=== PATIENT | female | born 1995 | race Hispanic/Latino ===

== ENCOUNTER 2021-11-29 01:25 | Inpatient (IN) | payer MEDICAID ==
[2021-11-29] MEDS ORDERED: LACTATED RINGERS 1,000 ML ONE (03:09)
[2021-11-29] MEDS ORDERED: SODIUM CHLORIDE 0.9% 1000 ML 1,000 ML IV ONE (03:23)
[2021-11-29 05:07] LABS: Basophils % (Auto) 0.2 % (0.0-1.8); Eosinophils % (Auto) 0.2 % (0.0-4.3); Hematocrit 33.3 % (30.3-42.9); Hemoglobin 10.7 gm/dl (10.1-14.3); Lymphocytes # (Auto) 0.4 K/mm3 (1.2-5.4); Lymphocytes % (Auto) 5.5 % (13.4-35.0); Mean Corpuscular HGB Conc 32 % (30-34); Mean Corpuscular Volume 85 fl (79-97); Monocytes # (Auto) 0.6 K/mm3 (0.0-0.8); Monocytes % (Auto) 7.4 % (0.0-7.3); Platelet Count 268 K/mm3 (140-440); Red Blood Count 3.93 M/mm3 (3.65-5.03); Red Cell Distribution Width 18.8 % (13.2-15.2)
[2021-11-29 05:18] LABS: Alanine Aminotransferase 21 units/L (7-56); Albumin 3.4 g/dL (3.9-5); Blood Urea Nitrogen 8 mg/dL (7-17); Calcium 9.1 mg/dL (8.4-10.2); Hemolysis Index 66
[2021-11-29 05:19] LABS: BUN/Creatinine Ratio 20
--- NOTE | 2021-11-29 05:38 | Ultrasound Report ---
ULTRASOUND RENAL INDICATION / CLINICAL INFORMATION: Back pain. COMPARISON: None available. FINDINGS: RIGHT KIDNEY: Length = 12.9 cm. - Echogenicity: Normal. - Parenchymal Thickness: Normal. - Hydronephrosis: None. - Cyst / Mass: None. - Stones: None seen. LEFT KIDNEY: Length = 13.1 cm. - Echogenicity: Normal. - Parenchymal Thickness: Normal. - Hydronephrosis: None. - Cyst / Mass: None. - Stones: None seen. URINARY BLADDER: No significant abnormality. FREE FLUID: None. ADDITIONAL FINDINGS: None. IMPRESSION: Unremarkable renal ultrasound. Signer Name: Raimundo Bullock MD Signed: 11/29/2021 5:34 AM Workstation Name: [id number]
--- NOTE | 2021-11-29 05:41 | Ultrasound Report ---
ULTRASOUND OBSTETRIC LIMITED INDICATION / CLINICAL INFORMATION: Contractions. - Clinical Gestational Age (GA) in weeks, days: 38, 3 TECHNIQUE: Transabdominal. COMPARISON: None available. FINDINGS: HEART RATE (beats per minute): 157 AMNIOTIC FLUID INDEX (cm) = 3.3 (normal = 7-24 cm) PRESENTATION: Cephalic. ADDITIONAL FINDINGS: Estimated age by ultrasound is 35 weeks 3 days. Estimated weight is 2578 g. IMPRESSION: 1. Viable intrauterine dated 35 weeks 3 days by ultrasound. 2. Abnormal amniotic fluid index of 3.3 cm. Signer Name: Raimundo Bullock MD Signed: 11/29/2021 5:36 AM Workstation Name: [id number]
[2021-11-29 05:56] LABS: Bilirubin,Urine NEG (Negative); Blood,Urine NEG (Negative); Color,Urine Amber (Yellow); Urobilinogen,Urine < 2.0 mg/dL (<2.0)
[2021-11-29 06:00] LABS: Mucus,Urine 3+ /HPF
[2021-11-29] MEDS ORDERED: ePHEDrine SULFATE 50 MG/1 ML INJ IV PRN (06:09)
[2021-11-29] MEDS ORDERED: MINERAL OIL 30 ML ORAL LIQD PO PRN (06:09)
[2021-11-29] MEDS ORDERED: OXYTOCIN DRIP 30 UNITS/500 ML BAG IV SCH ×2 (07:00→09:00)
--- NOTE | 2021-11-29 07:41 | History and Physical Report ---
History of Present Illness Date of examination: 11/29/21 Date of admission: 11/29/2021 Chief complaint: Back pain and lower abdominal pain History of present illness: The patient is a 26-year-old at 38-3/7 weeks gestation who presents to OB triage reporting lower abdominal pain and back pain. There is no vaginal bleeding. There is no leaking fluid. There are irregular contractions. There is good movement. In OB triage, the cervix was checked and the patient was deemed to not be in active labor. However, OB ultrasound limited revealed an amniotic fluid index of 3.3 cm. As such, this patient fulfills the contemporary criteria for oligohydramnios. In addition, there was maternal tachycardia. There was no fevers or chills. There was no leukocytosis. Urinalysis was reviewed. Lactic acid was not abnormally elevated. Therefore, the patient is admitted to labor and delivery for induction of labor secondary to oligohydramnios. Furthermore, further evaluation management of the maternal tachycardia will be performed. Past History Past Medical History: no pertinent history Past Surgical History: no surgical history Family/Genetic History: none Social history: no significant social history - Obstetrical History Expected Date of Delivery: 12/10/21 Actual Gestation: 38 Week(s) 3 Day(s) : 1 Para: 0 Medications and Allergies Allergies Allergy/AdvReac Type Severity Reaction Status Date / Time sulfur dioxide Allergy Severe Unknown Verified 11/29/21 02:07 pear Allergy Hives Verified 11/29/21 02:07 Active Meds: Active Medications Ephedrine Sulfate (Ephedrine Sulfate 50 Mg/1 Ml Inj) 10 mg IV Q2M PRN PRN Reason: Hypotension Lactated Ringer's (Lactated Ringers) 1,000 mls @ 125 mls/hr IV DIRECT KADEN Misoprostol (Misoprostol 25 Mcg Tab) 25 mcg PO Q4H PRN PRN Reason: Labor Induction Review of Systems All systems: negative - Vital Signs Vital signs: Vital Signs Pulse Pulse Ox 126 H 96 11/29/21 02:03 11/29/21 02:03 Temp Pulse Resp BP Pulse Ox 100 F H 117 H 20 101/50 96 11/29/21 02:30 11/29/21 05:30 11/29/21 02:30 11/29/21 05:30 11/29/21 02:59 - Physical Exam Breasts: Positive: normal Cardiovascular: Regular rate Lungs: Positive: Normal air movement Abdomen: Positive: normal appearance, normal bowel sounds Genitourinary (Female): Positive: normal external genitalia, normal perenium Vulva: both: normal Vagina: Positive: normal moisture Uterus: Positive: enlarged Adnexa: both: normal Anus/Rectum: Positive: normal perianal skin Extremities: Positive: normal Deep Tendon Reflex Grade: Normal +2 - Obstetrical FHR: category 1 Uterine Contraction Monitor Mode: Palpation Cervical Dilatation: 0 Cervical Effacement Percentage: 50 station: -3 Uterine Contraction Pattern: Irregular Results Result Diagrams: 11/29/21 03:22 11/29/21 Unknown Abnormal lab results 11/29/21 11/29/21 Range/Units 03:22 Unknown MCH 27 L (28-32) pg RDW 18.8 H (13.2-15.2) % Lymph % (Auto) 5.5 L (13.4-35.0) % [place] % (Auto) 7.4 H (0.0-7.3) % Lymph # (Auto) 0.4 L (1.2-5.4) K/mm3 Seg Neutrophils % 86.7 H (40.0-70.0) % Sodium 135 L (137-145) mmol/L Carbon Dioxide 20 L (22-30) mmol/L Creatinine 0.4 L (0.6-1.2) mg/dL Glucose 101 H (65-100) mg/dL Total Protein 6.1 L (6.3-8.2) g/dL Albumin 3.4 L (3.9-5) g/dL All other labs normal. ABG was ordered. EKG is ordered. Ultrasound: report reviewed (OB Ultrasound Limited= SLIUP. Vertex. EFW= 2578 g (4th %-ile). AGGIE= 3.3 cm.), image reviewed Assessment and Plan - Patient Problems (1) 38 weeks gestation of Current Visit: Yes Status: Acute Plan to address problem: care is up-to-date at [facility]. GBS status is unknown at this time. Currently, there are no risk factors for GBS per 2010 CDC MMWR guidelines. As such, no intrapartum GBS prophylaxis at this time. However, if this patient does develop risk factors for GBS or it is discovered that the patient's GBS culture was positive, then prescribe intravenous penicillin for intrapartum GBS prophylaxis. (2) Oligohydramnios in rosario in third trimester Current Visit: Yes Status: Acute Plan to address problem: The amniotic fluid next is 3.3 cm. As such, this patient fulfills the contemporary criteria for oligohydramnios. Etiology for this is unknown. ROM plus test is ordered. And lieu of the oligohydramnios, induction of labor is recommended to decrease the risk of stillbirth. (3) Maternal care for tachycardia during Current Visit: Yes Status: Acute Plan to address problem: The etiology for his maternal tachycardia is unknown at this time. There is no leukocytosis. This patient's maximum temperature was 100 F. Early onset sepsis is not suspected. ABG is ordered to evaluate for an A-a gradient. If there is an A-a gradient, then pulmonary embolism will be suspected must be ruled out. EKG is also ordered. (4) Encounter for induction of labor Current Visit: Yes Status: Acute Plan to address problem: Admit to labor and delivery. Ripen cervix with Cytotec. When cervix is dilated further, consider the addition of a Cook's catheter for additional cervical dilation.
[2021-11-29] MEDS ORDERED: fentaNYL 100 MCG/2 ML INJ IV PRN (08:30)
[2021-11-29] MEDS ORDERED: METHYLERGONOVINE MALEATE 0.2 MG/ML VIAL IM PRN (08:30)
[2021-11-29] MEDS ORDERED: ACETAMINOPHEN 325 MG TAB PO PRN (08:30)
[2021-11-29] MEDS ORDERED: CARBOPROST TROMETHAMINE 250 MCG/1 ML INJ IM PRN (08:30)
--- NOTE | 2021-11-29 17:59 | Ultrasound Report ---
ULTRASOUND OBSTETRIC LIMITED INDICATION / CLINICAL INFORMATION: AGGIE. Clinical Gestational Age (GA) in weeks, days: 38, 3 TECHNIQUE: Transabdominal. COMPARISON: 11/29/2021 FINDINGS: HEART RATE (beats per minute): 152 AMNIOTIC FLUID INDEX (cm) = 5.9 (normal = 7-24 cm) PRESENTATION: Cephalic. ADDITIONAL FINDINGS: None. IMPRESSION: 1. Mild oligohydramnios Signer Name: Jann Hoffmann DO Signed: 11/29/2021 5:55 PM Workstation Name: [id number]
--- NOTE | 2021-11-29 18:27 | Event Note ---
Date: 11/29/21 Discussed plan of care and route of delivery with the patient and her mother. They have agreed to proceed with induction of labor. The mother has to leave and will return a little later and has requested that we not start the induction until then. The patient has also tested positive for Covid.
[2021-11-30] MEDS: miSOPROStol 25 MCG TAB PO PRN ×4 (01:31→16:55)
[2021-11-30] MEDS: LACTATED RINGERS 1,000 ML IV SCH ×2 (08:16→17:07)
[2021-11-30] MEDS: BUTORPHANOL 2 MG/1 ML INJ IV PRN ×3 (15:14→22:46)
--- NOTE | 2021-11-30 16:34 | Progress Note ---
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 no lesions noted genital roger noted on exam CAT 1 tracing while on monitor pain with contractions P: continuous and contraction monitoring Continue induction process per unit protocol Continue induction with SL cytotec, then start Pitocin start ABX with active labor for unknown GBS Administer Diflucan PO for yeast infection Administer Pain medication for comfort Subjective - Subjective Date of service: 11/30/21 ([id number]) Principal diagnosis: IOL for Oligohydramnios Patient reports: other (pain with contractions) Objective - Vital Signs Vital Signs: Vital Signs - 12hr 11/30/21 11/30/21 11/30/21 04:22 04:23 04:27 Temperature Pulse Rate 101 H 103 H 113 H Respiratory Rate Blood Pressure Blood Pressure [Left] O2 Sat by Pulse 93 93 92 Oximetry 11/30/21 11/30/21 11/30/21 04:28 04:32 04:37 Temperature Pulse Rate 100 H 116 H 118 H Respiratory Rate Blood Pressure Blood Pressure [Left] O2 Sat by Pulse 93 97 96 Oximetry 11/30/21 11/30/21 11/30/21 04:42 04:48 04:50 Temperature Pulse Rate 118 H 101 H 114 H Respiratory Rate Blood Pressure Blood Pressure [Left] O2 Sat by Pulse 96 98 94 Oximetry 11/30/21 11/30/21 11/30/21 04:53 04:57 04:58 Temperature Pulse Rate 116 H 114 H 117 H Respiratory Rate Blood Pressure Blood Pressure [Left] O2 Sat by Pulse 96 93 95 Oximetry 11/30/21 11/30/21 11/30/21 05:03 05:05 05:08 Temperature Pulse Rate 116 H 114 H 116 H Respiratory Rate Blood Pressure Blood Pressure [Left] O2 Sat by Pulse 97 94 95 Oximetry 11/30/21 11/30/21 11/30/21 05:11 05:13 05:18 Temperature Pulse Rate 111 H 115 H 106 H Respiratory Rate Blood Pressure Blood Pressure [Left] O2 Sat by Pulse 94 97 97 Oximetry 11/30/21 11/30/21 11/30/21 05:23 05:28 05:31 Temperature Pulse Rate 103 H 107 H 104 H Respiratory Rate Blood Pressure Blood Pressure [Left] O2 Sat by Pulse 95 95 94 Oximetry 11/30/21 11/30/21 11/30/21 05:33 05:38 05:43 Temperature Pulse Rate 100 H 111 H 110 H Respiratory Rate Blood Pressure Blood Pressure [Left] O2 Sat by Pulse 96 95 95 Oximetry 11/30/21 11/30/21 11/30/21 05:45 05:48 05:52 Temperature Pulse Rate 116 H 111 H 108 H Respiratory Rate Blood Pressure Blood Pressure [Left] O2 Sat by Pulse 94 95 93 Oximetry 11/30/21 11/30/21 11/30/21 05:53 05:58 06:03 Temperature Pulse Rate 103 H 103 H 107 H Respiratory Rate Blood Pressure Blood Pressure [Left] O2 Sat by Pulse 95 94 96 Oximetry 11/30/21 11/30/21 11/30/21 06:06 06:09 06:14 Temperature Pulse Rate 106 H 107 H 105 H Respiratory Rate Blood Pressure Blood Pressure [Left] O2 Sat by Pulse 94 97 95 Oximetry 11/30/21 11/30/21 11/30/21 06:15 06:19 06:24 Temperature Pulse Rate 104 H 98 H 107 H Respiratory Rate Blood Pressure Blood Pressure [Left] O2 Sat by Pulse 94 96 95 Oximetry 11/30/21 11/30/21 11/30/21 06:26 06:29 06:31 Temperature Pulse Rate 105 H 105 H 107 H Respiratory Rate Blood Pressure Blood Pressure [Left] O2 Sat by Pulse 94 96 94 Oximetry 11/30/21 11/30/21 11/30/21 06:34 06:37 06:39 Temperature Pulse Rate 101 H 101 H 103 H Respiratory Rate Blood Pressure Blood Pressure [Left] O2 Sat by Pulse 94 94 94 Oximetry 11/30/21 11/30/21 11/30/21 06:42 06:44 06:47 Temperature Pulse Rate 113 H 108 H 103 H Respiratory Rate Blood Pressure Blood Pressure [Left] O2 Sat by Pulse 94 94 94 Oximetry 11/30/21 11/30/21 11/30/21 06:49 06:54 06:59 Temperature Pulse Rate 102 H 100 H 101 H Respiratory Rate Blood Pressure Blood Pressure [Left] O2 Sat by Pulse 94 94 97 Oximetry 11/30/21 11/30/21 11/30/21 07:01 07:04 07:07 Temperature Pulse Rate 100 H 106 H 97 H Respiratory Rate Blood Pressure Blood Pressure [Left] O2 Sat by Pulse 94 94 93 Oximetry 11/30/21 11/30/21 11/30/21 07:09 07:14 07:19 Temperature Pulse Rate 95 H 92 H 100 H Respiratory Rate Blood Pressure Blood Pressure [Left] O2 Sat by Pulse 92 91 91 Oximetry 11/30/21 11/30/21 11/30/21 07:24 07:29 07:34 Temperature Pulse Rate 98 H 97 H 99 H Respiratory Rate Blood Pressure Blood Pressure [Left] O2 Sat by Pulse 91 90 90 Oximetry 11/30/21 11/30/21 11/30/21 07:39 07:44 07:49 Temperature Pulse Rate 96 H 104 H 94 H Respiratory Rate Blood Pressure Blood Pressure [Left] O2 Sat by Pulse 90 90 92 Oximetry 11/30/21 11/30/21 11/30/21 07:54 07:59 08:00 Temperature Pulse Rate 92 H 97 H 106 H Respiratory Rate Blood Pressure 102/56 Blood Pressure [Left] O2 Sat by Pulse 92 94 Oximetry 11/30/21 11/30/21 11/30/21 08:03 08:04 08:05 Temperature 97.9 F Pulse Rate 99 H 104 H 113 H Respiratory 18 Rate Blood Pressure Blood Pressure 102/56 [Left] O2 Sat by Pulse 95 95 94 Oximetry 11/30/21 11/30/21 11/30/21 08:09 08:11 08:14 Temperature Pulse Rate 98 H 66 99 H Respiratory Rate Blood Pressure Blood Pressure [Left] O2 Sat by Pulse 94 93 95 Oximetry 11/30/21 11/30/21 11/30/21 08:17 08:19 08:23 Temperature Pulse Rate 98 H 100 H 99 H Respiratory Rate Blood Pressure Blood Pressure [Left] O2 Sat by Pulse 94 95 94 Oximetry 11/30/21 11/30/21 11/30/21 08:24 08:29 08:33 Temperature Pulse Rate 98 H 89 87 Respiratory Rate Blood Pressure Blood Pressure [Left] O2 Sat by Pulse 94 93 94 Oximetry 11/30/21 11/30/21 11/30/21 08:34 08:38 08:39 Temperature Pulse Rate 86 105 H 100 H Respiratory Rate Blood Pressure Blood Pressure [Left] O2 Sat by Pulse 92 93 93 Oximetry 0711/30/21 11/30/21 08:45 08:50 08:55 Temperature Pulse Rate 115 H 98 H 114 H Respiratory Rate Blood Pressure Blood Pressure [Left] O2 Sat by Pulse 96 95 96 Oximetry 11/30/21 11/30/21 11/30/21 09:00 09:03 09:05 Temperature Pulse Rate 78 102 H 99 H Respiratory Rate Blood Pressure Blood Pressure [Left] O2 Sat by Pulse 96 94 96 Oximetry 11/30/21 11/30/21 11/30/21 09:10 09:15 09:17 Temperature Pulse Rate 77 99 H 98 H Respiratory Rate Blood Pressure Blood Pressure [Left] O2 Sat by Pulse 91 91 91 Oximetry 11/30/21 11/30/21 11/30/21 09:20 09:23 09:25 Temperature Pulse Rate 111 H 94 H 106 H Respiratory Rate Blood Pressure Blood Pressure [Left] O2 Sat by Pulse 84 93 88 Oximetry 11/30/21 11/30/21 11/30/21 09:30 09:32 09:35 Temperature Pulse Rate 104 H 112 H 104 H Respiratory Rate Blood Pressure Blood Pressure [Left] O2 Sat by Pulse 87 93 94 Oximetry 11/30/21 11/30/21 11/30/21 09:40 09:42 09:45 Temperature Pulse Rate 98 H 103 H 90 Respiratory Rate Blood Pressure Blood Pressure [Left] O2 Sat by Pulse 93 94 93 Oximetry 11/30/21 11/30/21 11/30/21 09:49 09:50 09:55 Temperature Pulse Rate 94 H 97 H 102 H Respiratory Rate Blood Pressure Blood Pressure [Left] O2 Sat by Pulse 93 94 94 Oximetry 11/30/21 11/30/21 11/30/21 09:56 10:00 10:02 Temperature Pulse Rate 102 H 98 H 99 H Respiratory Rate Blood Pressure Blood Pressure [Left] O2 Sat by Pulse 94 92 94 Oximetry 11/30/21 11/30/21 11/30/21 10:05 10:10 10:15 Temperature Pulse Rate 99 H 100 H 102 H Respiratory Rate Blood Pressure Blood Pressure [Left] O2 Sat by Pulse 94 93 93 Oximetry 11/30/21 11/30/21 11/30/21 10:19 10:20 10:25 Temperature Pulse Rate 97 H 102 H 96 H Respiratory Rate Blood Pressure Blood Pressure [Left] O2 Sat by Pulse 94 93 94 Oximetry 11/30/21 11/30/21 11/30/21 10:30 10:35 10:37 Temperature Pulse Rate 77 94 H 78 Respiratory Rate Blood Pressure Blood Pressure [Left] O2 Sat by Pulse 90 78 L 93 Oximetry 11/30/21 11/30/21 11/30/21 10:40 10:45 10:50 Temperature Pulse Rate 78 99 H 94 H Respiratory Rate Blood Pressure Blood Pressure [Left] O2 Sat by Pulse 78 L 91 67 L Oximetry 11/30/21 11/30/21 11/30/21 10:51 10:55 10:56 Temperature Pulse Rate 105 H 91 H Respiratory Rate Blood Pressure Blood Pressure [Left] O2 Sat by Pulse 83 L 84 92 Oximetry 11/30/21 11/30/21 11/30/21 11:00 11:05 11:10 Temperature Pulse Rate 107 H 99 H 100 H Respiratory Rate Blood Pressure Blood Pressure [Left] O2 Sat by Pulse 94 95 95 Oximetry 11/30/21 11/30/21 11/30/21 11:15 11:16 12:25 Temperature Pulse Rate 105 H 108 H 107 H Respiratory Rate Blood Pressure Blood Pressure [Left] O2 Sat by Pulse 96 93 95 Oximetry 11/30/21 11/30/21 11/30/21 12:30 12:34 12:35 Temperature Pulse Rate 106 H 98 H 98 H Respiratory Rate Blood Pressure Blood Pressure [Left] O2 Sat by Pulse 96 94 95 Oximetry 11/30/21 11/30/21 11/30/21 12:40 12:41 12:45 Temperature Pulse Rate 102 H 97 H 104 H Respiratory Rate Blood Pressure Blood Pressure [Left] O2 Sat by Pulse 95 94 95 Oximetry 11/30/21 11/30/21 11/30/21 12:47 12:50 12:55 Temperature Pulse Rate 95 H 99 H 97 H Respiratory Rate Blood Pressure Blood Pressure [Left] O2 Sat by Pulse 94 94 94 Oximetry 11/30/21 11/30/21 11/30/21 12:58 13:00 13:44 Temperature Pulse Rate 107 H 102 H 98 H Respiratory Rate Blood Pressure Blood Pressure [Left] O2 Sat by Pulse 93 97 95 Oximetry 11/30/21 11/30/21 13:47 13:49 Temperature Pulse Rate 104 H 100 H Respiratory Rate Blood Pressure Blood Pressure [Left] O2 Sat by Pulse 94 96 Oximetry - Exam Breasts: deferred Vulva: both: normal (erythema, yeast noted), ulceration (none notede) Uterus: Present: fundal height above umbilicus FHR: category 1 (@1520) Uterine Contraction Monitor Mode: External Cervical Dilatation: 1.5 Cervical Effacement Percentage: 70 (posterior) station: -3 Uterine Contraction Frequency (min): 2-6 Uterine Contraction Pattern: Regular Uterine Contraction Intensity: Moderate Extremities: normal - Labs Labs: Abnormal Labs 11/29/21 11/29/21 11/29/21 03:22 08:40 13:06 MCH 27 L RDW 18.8 H Lymph % (Auto) 5.[address] [place] % (Auto) 7.4 H Lymph # (Auto) 0.4 L Seg Neutrophils % 86.7 H Sodium Carbon Dioxide Creatinine Glucose Total Protein Albumin Syphilis IgG/IgM Ab Reactive A SARS-CoV-2 (PCR) Positive A 11/29/21 Unknown MCH RDW Lymph % (Auto) [place] % (Auto) Lymph # (Auto) Seg Neutrophils % Sodium 135 L Carbon Dioxide 20 L Creatinine 0.4 L Glucose 101 H Total Protein 6.1 L Albumin 3.4 L Syphilis IgG/IgM Ab SARS-CoV-2 (PCR) Laboratory Results - last 24 hr 11/29/21 08:40 RPR Titer 1:1
[2021-11-30] MEDS ORDERED: FLUCONAZOLE 100 MG TAB PO ONE (16:37)
--- NOTE | 2021-11-30 18:30 | Event Note ---
Date: 11/30/21 Patient crying out stating she is in pain and feels anxious. VE 1.5-2cm/70/-3. Comfort measures given, reassurance and pain meds. EFM cat 1 tracin, contraction 2-3 min.
[2021-11-30] MEDS ORDERED: AMPICILLIN/NS 2 GM/100 ML 2 GM/100 ML BAG IV ONE (20:55)
[2021-11-30] MEDS: OXYTOCIN DRIP 30 UNITS/500 ML BAG IV SCH (21:10)
[2021-12-01] MEDS: AMPICILLIN/NS 1 GM/50 ML 1 GM/50 ML BAG IV SCH ×3 (02:30→20:14)
[2021-12-01] MEDS: BUTORPHANOL 2 MG/1 ML INJ IV PRN (03:02)
--- NOTE | 2021-12-01 10:12 | Progress Note ---
Assessment and Plan A: IUP@ 38.3 wks Aspergers syndrome HSV II, Oligo, M.O H/O syphilis GBS unknown CAT FHT P: Continue monitoring Start Pitocin Epidural as needed GBS protocal Anticipate Subjective - Subjective Date of service: 12/01/21 Principal diagnosis: IOL for Oligohydramnios Patient reports: movement normal, contractions, other (pain with contractions) Objective - Vital Signs Vital Signs: Vital Signs - 12hr 11/30/21 11/30/21 11/30/21 21:59 22:15 22:41 Temperature Pulse Rate 102 H 100 H 112 H Respiratory Rate Blood Pressure 104/59 111/58 Blood Pressure [Left] O2 Sat by Pulse 94 Oximetry 11/30/21 11/30/21 11/30/21 22:45 22:46 22:49 Temperature Pulse Rate 111 H 111 H 109 H Respiratory Rate Blood Pressure 94/51 Blood Pressure [Left] O2 Sat by Pulse 94 94 Oximetry 11/30/21 11/30/21 11/30/21 22:51 22:56 23:00 Temperature Pulse Rate 98 H 91 H 95 H Respiratory Rate Blood Pressure 92/52 Blood Pressure [Left] O2 Sat by Pulse 93 90 89 Oximetry 11/30/21 11/30/21 11/30/21 23:01 23:06 23:07 Temperature Pulse Rate 89 88 84 Respiratory Rate Blood Pressure Blood Pressure [Left] O2 Sat by Pulse 90 95 93 Oximetry 11/30/21 11/30/21 11/30/21 23:11 23:14 23:16 Temperature Pulse Rate 100 H 99 H 92 H Respiratory Rate Blood Pressure 98/60 Blood Pressure [Left] O2 Sat by Pulse 93 93 Oximetry 11/30/21 11/30/21 11/30/21 23:21 23:24 23:26 Temperature Pulse Rate 94 H 103 H 96 H Respiratory Rate Blood Pressure Blood Pressure [Left] O2 Sat by Pulse 93 94 92 Oximetry 11/30/21 11/30/21 11/30/21 23:30 23:31 23:36 Temperature Pulse Rate 86 96 H Respiratory Rate Blood Pressure 98/54 Blood Pressure [Left] O2 Sat by Pulse 86 92 93 Oximetry 11/30/21 11/30/21 11/30/21 23:37 23:41 23:46 Temperature Pulse Rate 86 92 H 93 H Respiratory Rate Blood Pressure 103/58 Blood Pressure [Left] O2 Sat by Pulse 94 93 93 Oximetry 11/30/21 11/30/21 11/30/21 23:48 23:51 23:55 Temperature Pulse Rate 85 98 H 91 H Respiratory Rate Blood Pressure Blood Pressure [Left] O2 Sat by Pulse 94 93 94 Oximetry 11/30/21 11/30/21 12/01/21 23:56 23:59 00:01 Temperature Pulse Rate 88 93 H 90 Respiratory Rate Blood Pressure 100/58 Blood Pressure [Left] O2 Sat by Pulse 95 94 Oximetry 12/01/21 12/01/21 12/01/21 00:06 00:08 00:11 Temperature Pulse Rate 100 H 92 H 91 H Respiratory Rate Blood Pressure Blood Pressure [Left] O2 Sat by Pulse 96 94 93 Oximetry 12/01/21 12/01/21 12/01/21 00:13 00:14 00:16 Temperature 98.1 F Pulse Rate 98 H 88 88 Respiratory 18 Rate Blood Pressure 105/60 Blood Pressure 105/60 [Left] O2 Sat by Pulse 94 98 93 Oximetry 12/01/21 12/01/21 12/01/21 00:21 00:22 00:26 Temperature Pulse Rate 96 H 92 H 101 H Respiratory Rate Blood Pressure Blood Pressure [Left] O2 Sat by Pulse 93 94 95 Oximetry 12/01/21 12/01/21 12/01/21 00:27 00:30 00:31 Temperature Pulse Rate 87 88 90 Respiratory Rate Blood Pressure 97/55 Blood Pressure [Left] O2 Sat by Pulse 94 93 Oximetry 12/01/21 12/01/21 12/01/21 00:36 00:41 00:45 Temperature Pulse Rate 92 H 91 H 90 Respiratory Rate Blood Pressure 100/53 Blood Pressure [Left] O2 Sat by Pulse 93 92 76 L Oximetry 12/01/21 12/01/21 12/01/21 00:46 00:51 00:56 Temperature Pulse Rate 95 H 94 H 95 H Respiratory Rate Blood Pressure Blood Pressure [Left] O2 Sat by Pulse 92 92 92 Oximetry 12/01/21 12/01/21 12/01/21 01:00 01:01 01:06 Temperature Pulse Rate 96 H 91 H 95 H Respiratory Rate Blood Pressure 104/58 Blood Pressure [Left] O2 Sat by Pulse 81 L 92 93 Oximetry 12/01/21 12/01/21 12/01/21 01:11 01:14 01:16 Temperature Pulse Rate 95 H 93 H 90 Respiratory Rate Blood Pressure 105/53 Blood Pressure [Left] O2 Sat by Pulse 94 87 94 Oximetry 12/01/21 12/01/21 12/01/21 01:21 01:22 01:26 Temperature Pulse Rate 91 H 89 92 H Respiratory Rate Blood Pressure Blood Pressure [Left] O2 Sat by Pulse 94 94 93 Oximetry 12/01/21 12/01/21 12/01/21 01:29 01:31 01:35 Temperature Pulse Rate 96 H 92 H 88 Respiratory Rate Blood Pressure 102/59 Blood Pressure [Left] O2 Sat by Pulse 90 92 94 Oximetry 12/01/21 12/01/21 12/01/21 01:36 01:41 01:45 Temperature Pulse Rate 92 H 97 H 96 H Respiratory Rate Blood Pressure 108/61 Blood Pressure [Left] O2 Sat by Pulse 93 94 Oximetry 12/01/21 12/01/21 12/01/21 01:46 01:51 01:56 Temperature Pulse Rate 73 88 102 H Respiratory Rate Blood Pressure Blood Pressure [Left] O2 Sat by Pulse 97 95 96 Oximetry 12/01/21 12/01/21 12/01/21 01:58 02:01 02:02 Temperature Pulse Rate 114 H 84 93 H Respiratory Rate Blood Pressure 104/57 Blood Pressure [Left] O2 Sat by Pulse 93 96 Oximetry 12/01/21 12/01/21 12/01/21 02:04 02:06 02:10 Temperature Pulse Rate 104 H 90 97 H Respiratory Rate Blood Pressure Blood Pressure [Left] O2 Sat by Pulse 94 93 94 Oximetry 12/01/21 12/01/21 12/01/21 02:11 02:15 02:16 Temperature Pulse Rate 99 H 92 H 89 Respiratory Rate Blood Pressure 120/66 Blood Pressure [Left] O2 Sat by Pulse 95 80 L 92 Oximetry 12/01/21 12/01/21 12/01/21 02:21 02:26 02:29 Temperature Pulse Rate 91 H 91 H Respiratory Rate Blood Pressure Blood Pressure [Left] O2 Sat by Pulse 91 91 61 L Oximetry 12/01/21 12/01/21 12/01/21 02:30 02:31 02:36 Temperature Pulse Rate 88 86 91 H Respiratory Rate Blood Pressure 120/70 Blood Pressure [Left] O2 Sat by Pulse 92 91 Oximetry 12/01/21 12/01/21 12/01/21 02:38 02:56 02:57 Temperature Pulse Rate 93 H 87 82 Respiratory Rate Blood Pressure Blood Pressure [Left] O2 Sat by Pulse 94 97 93 Oximetry 12/01/21 12/01/21 12/01/21 02:59 03:01 03:06 Temperature Pulse Rate 88 86 88 Respiratory Rate Blood Pressure 109/63 Blood Pressure [Left] O2 Sat by Pulse 95 92 Oximetry 12/01/21 12/01/21 12/01/21 03:07 03:11 03:14 Temperature Pulse Rate 96 H 94 H 102 H Respiratory Rate Blood Pressure Blood Pressure [Left] O2 Sat by Pulse 94 94 93 Oximetry 12/01/21 12/01/21 12/01/21 03:15 03:16 03:21 Temperature Pulse Rate 86 95 H 89 Respiratory Rate Blood Pressure 104/61 Blood Pressure [Left] O2 Sat by Pulse 94 92 Oximetry 12/01/21 12/01/21 12/01/21 03:26 03:29 03:31 Temperature Pulse Rate 91 H 90 82 Respiratory Rate Blood Pressure 99/58 Blood Pressure [Left] O2 Sat by Pulse 92 92 Oximetry 12/01/21 12/01/21 12/01/21 03:36 03:38 03:41 Temperature Pulse Rate 87 84 95 H Respiratory Rate Blood Pressure Blood Pressure [Left] O2 Sat by Pulse 94 94 95 Oximetry 12/01/21 12/01/21 12/01/21 03:44 03:45 03:46 Temperature Pulse Rate 84 94 H 95 H Respiratory Rate Blood Pressure 102/59 Blood Pressure [Left] O2 Sat by Pulse 93 94 Oximetry 12/01/21 12/01/21 12/01/21 03:51 03:52 03:56 Temperature Pulse Rate 85 87 87 Respiratory Rate Blood Pressure Blood Pressure [Left] O2 Sat by Pulse 95 94 97 Oximetry 12/01/21 12/01/21 12/01/21 03:59 04:01 04:06 Temperature Pulse Rate 81 89 92 H Respiratory Rate Blood Pressure 107/59 Blood Pressure [Left] O2 Sat by Pulse 94 95 95 Oximetry 12/01/21 12/01/21 12/01/21 04:11 04:12 04:14 Temperature Pulse Rate 94 H 92 H 88 Respiratory Rate Blood Pressure 101/58 Blood Pressure [Left] O2 Sat by Pulse 95 94 Oximetry 12/01/21 12/01/21 12/01/21 04:16 04:21 04:26 Temperature Pulse Rate 93 H 90 90 Respiratory Rate Blood Pressure Blood Pressure [Left] O2 Sat by Pulse 96 95 94 Oximetry 12/01/21 12/01/21 12/01/21 04:27 04:29 04:31 Temperature Pulse Rate 91 H 89 91 H Respiratory Rate Blood Pressure 107/58 Blood Pressure [Left] O2 Sat by Pulse 94 95 Oximetry 12/01/21 12/01/21 12/01/21 04:35 04:36 04:47 Temperature Pulse Rate 88 85 89 Respiratory Rate Blood Pressure 107/59 Blood Pressure [Left] O2 Sat by Pulse 94 94 88 Oximetry 12/01/21 12/01/21 12/01/21 05:02 05:07 05:08 Temperature Pulse Rate 92 H 95 H 87 Respiratory Rate Blood Pressure 100/67 Blood Pressure [Left] O2 Sat by Pulse 92 96 94 Oximetry 12/01/21 12/01/21 12/01/21 05:12 05:14 05:15 Temperature Pulse Rate 87 88 88 Respiratory Rate Blood Pressure 112/64 Blood Pressure [Left] O2 Sat by Pulse 96 94 Oximetry 12/01/21 12/01/21 12/01/21 05:17 05:20 05:22 Temperature Pulse Rate 89 89 92 H Respiratory Rate Blood Pressure Blood Pressure [Left] O2 Sat by Pulse 95 94 95 Oximetry 12/01/21 12/01/21 12/01/21 05:27 05:29 05:30 Temperature 98.0 F Pulse Rate 92 H 87 87 Respiratory 18 Rate Blood Pressure 101/59 Blood Pressure 101/59 [Left] O2 Sat by Pulse 94 92 95 Oximetry 12/01/21 12/01/21 12/01/21 05:32 05:37 05:42 Temperature Pulse Rate 76 91 H 107 H Respiratory Rate Blood Pressure Blood Pressure [Left] O2 Sat by Pulse 95 95 96 Oximetry 12/01/21 12/01/21 12/01/21 05:45 05:47 05:52 Temperature Pulse Rate 89 88 95 H Respiratory Rate Blood Pressure 99/55 Blood Pressure [Left] O2 Sat by Pulse 93 91 Oximetry 12/01/21 12/01/21 12/01/21 05:57 05:59 06:02 Temperature Pulse Rate 93 H 93 H 89 Respiratory Rate Blood Pressure 102/59 Blood Pressure [Left] O2 Sat by Pulse 92 93 Oximetry 12/01/21 12/01/21 12/01/21 06:07 06:12 06:14 Temperature Pulse Rate 95 H 93 H 107 H Respiratory Rate Blood Pressure 117/63 Blood Pressure [Left] O2 Sat by Pulse 93 90 Oximetry 12/01/21 12/01/21 12/01/21 06:17 06:22 06:27 Temperature Pulse Rate 81 86 93 H Respiratory Rate Blood Pressure Blood Pressure [Left] O2 Sat by Pulse 93 92 91 Oximetry 12/01/21 12/01/21 12/01/21 06:29 06:30 06:32 Temperature Pulse Rate 94 H 93 H 96 H Respiratory Rate Blood Pressure 110/59 Blood Pressure [Left] O2 Sat by Pulse 88 92 Oximetry 12/01/21 12/01/21 12/01/21 06:37 06:41 06:42 Temperature Pulse Rate 108 H 103 H 104 H Respiratory Rate Blood Pressure Blood Pressure [Left] O2 Sat by Pulse 95 94 93 Oximetry 12/01/21 12/01/21 12/01/21 07:22 07:27 07:29 Temperature Pulse Rate 98 H 98 H 89 Respiratory Rate Blood Pressure 107/65 Blood Pressure [Left] O2 Sat by Pulse 97 98 Oximetry 12/01/21 12/01/21 12/01/21 07:32 07:37 07:42 Temperature Pulse Rate 93 H 92 H 92 H Respiratory Rate Blood Pressure Blood Pressure [Left] O2 Sat by Pulse 99 98 98 Oximetry 12/01/21 12/01/21 12/01/21 07:44 07:47 07:52 Temperature Pulse Rate 85 89 96 H Respiratory Rate Blood Pressure 109/67 Blood Pressure [Left] O2 Sat by Pulse 97 98 Oximetry 12/01/21 12/01/21 12/01/21 07:57 07:59 08:02 Temperature Pulse Rate 93 H 96 H 87 Respiratory Rate Blood Pressure 110/62 Blood Pressure [Left] O2 Sat by Pulse 98 99 Oximetry 12/01/21 12/01/21 12/01/21 08:07 08:12 08:14 Temperature Pulse Rate 95 H 103 H 91 H Respiratory Rate Blood Pressure 107/59 Blood Pressure [Left] O2 Sat by Pulse 98 97 Oximetry 12/01/21 12/01/21 12/01/21 08:17 08:22 08:27 Temperature Pulse Rate 97 H 93 H 89 Respiratory Rate Blood Pressure Blood Pressure [Left] O2 Sat by Pulse 97 96 95 Oximetry 12/01/21 12/01/21 12/01/21 08:29 08:32 08:37 Temperature Pulse Rate 88 92 H 99 H Respiratory Rate Blood Pressure 108/59 Blood Pressure [Left] O2 Sat by Pulse 95 96 Oximetry 12/01/21 12/01/21 12/01/21 08:42 08:44 08:47 Temperature Pulse Rate 88 83 90 Respiratory Rate Blood Pressure 100/55 Blood Pressure [Left] O2 Sat by Pulse 95 96 Oximetry 12/01/21 12/01/21 12/01/21 08:49 08:52 08:57 Temperature Pulse Rate 74 88 99 H Respiratory Rate Blood Pressure Blood Pressure [Left] O2 Sat by Pulse 94 96 97 Oximetry 12/01/21 12/01/21 12/01/21 08:59 09:02 09:07 Temperature Pulse Rate 100 H 95 H 92 H Respiratory Rate Blood Pressure 114/72 Blood Pressure [Left] O2 Sat by Pulse 95 96 Oximetry 12/01/21 12/01/21 12/01/21 09:12 09:16 09:17 Temperature Pulse Rate 83 86 85 Respiratory Rate Blood Pressure 125/64 Blood Pressure [Left] O2 Sat by Pulse 97 94 97 Oximetry 12/01/21 12/01/21 12/01/21 09:22 09:27 09:30 Temperature Pulse Rate 84 88 89 Respiratory Rate Blood Pressure 118/69 Blood Pressure [Left] O2 Sat by Pulse 95 97 Oximetry 12/01/21 12/01/21 12/01/21 09:32 09:37 09:42 Temperature Pulse Rate 84 94 H 90 Respiratory Rate Blood Pressure Blood Pressure [Left] O2 Sat by Pulse 95 97 96 Oximetry 12/01/21 12/01/21 09:45 09:47 Temperature Pulse Rate 100 H 88 Respiratory Rate Blood Pressure 131/72 Blood Pressure [Left] O2 Sat by Pulse 97 Oximetry - Exam Breasts: deferred Abdomen: Present: normal appearance, soft, normal bowel sounds Vulva: both: normal Uterus: Present: normal FHR: auscultation normal, category 1 Uterine Contraction Monitor Mode: External Cervical Dilatation: 3 (pernurse) Cervical Effacement Percentage: 50 station: -3 Uterine Contraction Pattern: Regular Uterine Tone Measurement Phase: Resting Uterine Contraction Intensity: Mild Extremities: normal - Labs Labs: Abnormal Labs 11/29/21 11/29/21 11/29/21 03:22 08:40 13:06 MCH 27 L RDW 18.8 H Lymph % (Auto) 5.5 L Crawford % (Auto) 7.4 H Lymph # (Auto) 0.4 L Seg Neutrophils % 86.7 H Sodium Carbon Dioxide Creatinine Glucose Total Protein Albumin Syphilis IgG/IgM Ab Reactive A SARS-CoV-2 (PCR) Positive A 11/29/21 Unknown MCH RDW Lymph % (Auto) Crawford % (Auto) Lymph # (Auto) Seg Neutrophils % Sodium 135 L Carbon Dioxide 20 L Creatinine 0.4 L Glucose 101 H Total Protein 6.1 L Albumin 3.4 L Syphilis IgG/IgM Ab SARS-CoV-2 (PCR)
[2021-12-01] MEDS ORDERED: NALOXONE 0.4 MG/1 ML INJ IV PRN (12:16)
[2021-12-01] MEDS ORDERED: ePHEDrine SULFATE 50 MG/1 ML INJ IV PRN (12:16)
--- NOTE | 2021-12-01 12:16 | Anesthesia Consultation ---
Anesthesia Consult and Med Hx Date of service: 12/01/21 - Airway Anesthetic Teeth Evaluation: Good ROM Head & Neck: Adequate Mental/Hyoid Distance: Adequate Mallampati Class: Class II Intubation Access Assessment: Good - Pulmonary Exam CTA: Yes - Cardiac Exam Cardiac Exam: RRR - Pre-Operative Health Status ASA Pre-Surgery Classification: ASA2 Proposed Anesthetic Plan: Epidural - Pulmonary Hx Asthma: No COPD: No Hx Pneumonia: No - Cardiovascular System Hx Hypertension: Yes (G-HTN) - Central Nervous System Hx Psychiatric Problems: Yes - Endocrine Hx End Stage Renal Disease: No - Other Systems Hx Alcohol Use: No
--- NOTE | 2021-12-01 12:19 | Progress Note ---
Labor Epidural - Labor Epidural Start Time: 11:45 Stop Time: 11:54 Performed by:: OZIEL ZHU Procedure: Patient is requesting epidural for labor and pain. H&P, labs were reviewed. Patient IDed, all questions and concerns were answered, and consent was signed. Timeout was performed at bedside. Patient in sitting position. Sterile prep and drape was performed. 3ml of 1% lidocaine skin wheal at L[3]- L [4]. 17- gauge Tuohy epidural needle was advanced to loss of resistance with air technique cm. Negative CSF negative blood. Epidural catheter advanced to [15] centimeters. [negative] Aspiration [negative] test dose. Sterile dressing applied. Patient tolerated procedure.
[2021-12-01] MEDS: LACTATED RINGERS 1,000 ML IV SCH ×2 (12:40→20:17)
[2021-12-01] MEDS: fentaNYL-BUPIV 2 MCG/ML-0.125% 200 MCG/100 ML BAG EPIDURAL SCH ×2 (12:40→20:13)
[2021-12-01] MEDS: OXYTOCIN DRIP 30 UNITS/500 ML BAG IV SCH ×3 (12:41→14:50)
--- NOTE | 2021-12-01 15:11 | Electrocardiograph Report ---
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
--- NOTE | 2021-12-01 16:09 | Event Note ---
Date: 12/01/21 A: CAT I FHT with uc q 3 min, SVE 3/60%/-2. VSS P: Continue monitoring with Pitocin AROM (scant bloody show) Anticpate
[2021-12-01] MEDS ORDERED: BUPIVACAINE/PF (0.25%) 2.5 MG/ML 10 ML VIAL INFILTRATI ONE (19:58)
[2021-12-02] MEDS ORDERED: BUPIVACAINE/PF (0.5%) 5 MG/1 ML 10 ML VIAL INFILTRATI ONE (00:54)
[2021-12-02] MEDS: LACTATED RINGERS 1,000 ML IV SCH ×2 (04:20→23:35)
[2021-12-02] MEDS: AMPICILLIN/NS 1 GM/50 ML 1 GM/50 ML BAG IV SCH (05:20)
[2021-12-02] MEDS ORDERED: BUPIVACAINE/PF (0.25%) 2.5 MG/ML 10 ML VIAL INFILTRATI ONE (07:16)
[2021-12-02] MEDS ORDERED: SODIUM CHLORIDE P/F VIAL 10 ML 10 ML ONE (07:17)
[2021-12-02] MEDS: OXYTOCIN DRIP 30 UNITS/500 ML BAG IV SCH ×3 (07:42→10:09)
--- NOTE | 2021-12-02 08:12 | Event Note ---
Date: 12/02/21 A: CAT I FHT, SVE 8-9/100%/0 per nurse, UC Q 2-3 min p: Continue monitoring with Pitocin Anticipate
[2021-12-02] MEDS ORDERED: LIDOCAINE (2%) 20 MG/1 ML VIAL 20 ML MDV INFILTRATI ONE (11:54)
[2021-12-02] MEDS ORDERED: miSOPROStol 200 MCG TAB ONE ×2 (12:20→12:35)
[2021-12-02] MEDS ORDERED: miSOPROStol 200 MCG TAB PR NR (12:24)
--- NOTE | 2021-12-02 13:10 | Procedure Note ---
OB Delivery Note - Delivery Date of Delivery: 12/02/21 Surgeon: QUINTEN RAMACHANDRAN Estimated blood loss: 1000cc - Vaginal Delivery presentation: vertex Delivery position: OA Intrapartum events: prolonged active phase, hemorrhage, shoulder dystocia, uterine atony Delivery induction: oxytocin Delivery augmentation: rupture of membranes Delivery monitor: external FHT, external uterine, internal FHT Route of delivery: Delivery placenta: spontaneous Delivery cord: 3 umbilical vessels Episiotomy: none Delivery laceration: 1st degree (x3, to left vagina, perineum and mid periurethra) Delivery repair: chromic Anesthesia: epidural Delivery comments: pt evaluated earlier with reducible cervix and pt allowed to labor down with peanut ball. Pt allowed to push to +2 station, pt pushing ineffectively with small pushes and pt encouraged throughout the process. Pt frustrated at times with her mother and emotional support given to both. Pt pushed in McRobert's position with both nurses holding her legs back, head delivered with turtle sign, suprapubic pressure initially done by me, with good effect. Nurse assisted after pt was delivering. Pt sustained mid-periurethral 1st degree, left vaginal wall first degree and left perineum first degree all repaired with 2-0 chromic running locked suture. Bimanual exam done and uterine atony treated with IV pitocin, methergine 0.2mg IM and cytotec 800mcg per rectum. Lower uterine segment cleared of large clots and cervix palpated, unable to visualize with all size speculum with bilateral vaginal side wall prolapse. Palpation with cervix complete. Will give ancef 2gm IV x1 for extensive manipulation and possible contamination with pt's stool during delivery. Pt given IV fentanyl as clots wer removed from uterus, for comfort with pt stating it was painful. EBL 1000cc and will check cbc in 4 hrs. Pt to go to if vital signs remain wnl and epidural completely wears off. All questions encouraged and answered. - A at 1 minute: 8 at 5 minutes: 9 Gender: Female (wt 3390g; clear amniotic fluid)
[2021-12-02] MEDS ORDERED: ONDANSETRON 4 MG/2 ML INJ IV PRN (18:09)
[2021-12-02] MEDS ORDERED: PROMETHAZINE 25 MG RECT SUPP PR PRN (18:09)
[2021-12-02] MEDS ORDERED: WITCH HAZEL/ GLYCERIN PAD TP PRN (18:09)
[2021-12-02] MEDS ORDERED: HYDROCORTISONE 25 MG RECTAL SUPP PR PRN (18:09)
[2021-12-02] MEDS ORDERED: LANOLIN/ZINC/DIMETHICONE (LANSINOH) 7 GM TP PRN ×2 (18:09)
[2021-12-02] MEDS ORDERED: ACETAMINOPHEN 325 MG TAB PO PRN (18:09)
[2021-12-02] MEDS ORDERED: diphenhydrAMINE 25 MG CAP PO PRN (18:09)
[2021-12-02] MEDS ORDERED: PROMETHAZINE 25 MG TAB PO PRN (18:09)
[2021-12-02] MEDS ORDERED: BENZOCAINE/MENTHOL 20/0.5% TOP SPRAY 56 GM TP PRN (18:09)
[2021-12-02] MEDS ORDERED: oxyCODONE /ACETAMINOPHEN 5-325MG TAB PO PRN (18:09)
[2021-12-02] MEDS ORDERED: MAGNESIUM HYDROXIDE (MOM) ORAL LIQD UDC PO PRN (18:09)
[2021-12-02] MEDS ORDERED: miSOPROStol 100 MCG TAB PR PRN (18:09)
[2021-12-03] MEDS: IBUPROFEN 800 MG TAB PO SCH ×6 (00:03→23:52)
--- NOTE | 2021-12-03 03:55 | Post Anesthesia Evaluation ---
- Post Anesthesia Evaluation Patient Participated: No Airway Patent: Yes Stable Respiratory Function: Yes Nausea/Vomiting: No Temp > 96.8F: Yes Pain Manageable: Yes Adequeate Hydration: Yes Anesthesia Complications: No Block Receding Appropriately: Yes Patient on Ventilator: No
[2021-12-03 05:16] LABS: Hematocrit 27.1 % (30.3-42.9); Hemoglobin 8.9 gm/dl (10.1-14.3)
[2021-12-03 08:53] LABS: Hematocrit 30.8 % (30.3-42.9); Hemoglobin 9.9 gm/dl (10.1-14.3); Mean Corpuscular HGB Conc 32 % (30-34); Mean Corpuscular Volume 85 fl (79-97); Platelet Count 248 K/mm3 (140-440); Red Blood Count 3.63 M/mm3 (3.65-5.03); Red Cell Distribution Width 18.7 % (13.2-15.2)
[2021-12-03] MEDS: valACYclovir 500 MG TAB PO SCH (11:09)
[2021-12-03] MEDS: PRENATAL VIT27-FE FUMARATE-FOLIC ACID VIT TAB PO SCH (11:09)
--- NOTE | 2021-12-03 12:42 | Progress Note ---
Assessment and Plan PPD#1 , Covid positive and asymptomatic. H/O Asperger's syndrome and need more instruction on baby care and the natural expectations of with vag bleed. PPH with asymptomatic anemia 1. Routine care 2. Nurse to teach baby care Emotional support given. May be discharged tomorrow as expected for routine vag deliveries Subjective Date of service: 12/03/21 Principal diagnosis: PPD#1 , Obesity Interval history: Pt states her vag bleeding is still present though not as bad as a period. Pt is voiding without difficulty. pt plans to bottle feed. Pt denies headache or coughing. Denies pelvic pain. Objective - Constitutional Vitals: Vital Signs - 12hr 12/03/21 12/03/21 12/03/21 02:06 08:09 08:10 Temperature 98.2 F 97.6 F Pulse Rate 92 H 86 Respiratory 20 20 Rate Blood Pressure 106/70 104/61 O2 Sat by Pulse 96 97 Oximetry O2 Sat by Pulse 98 Oximetry [ Bilateral] General appearance: Present: no acute distress - Neck Neck: normal ROM - Respiratory Respiratory effort: normal - Cardiovascular Rhythm: regular Extremities: No edema - Gastrointestinal General gastrointestinal: Present: soft (obese) - Genitourinary Female genitourinary: other (Fundus firm ) - Integumentary Integumentary: warm, dry - Neurologic Neurologic: moves all extremities - Psychiatric Psychiatric: cooperative - Labs CBC & Chem 7: 12/03/21 08:40 11/29/21 Unknown Labs: Abnormal lab results 12/03/21 12/03/21 Range/Units 04:53 08:40 RBC 3.63 L (3.65-5.03) M/mm3 Hgb 8.9 L 9.9 L (10.1-14.3) gm/dl Hct 27.1 L (30.3-42.9) % MCH 27 L (28-32) pg RDW 18.7 H (13.2-15.2) % Medications & Allergies - Medications Allergies/Adverse Reactions: Allergies sulfur dioxide Allergy (Severe, Verified 11/29/21 02:07) Unknown pear Allergy (Verified 11/29/21 02:07) Hives Home Medications: Home Medications Medication Instructions Recorded Confirmed Last Taken Type No Known Home Medications [No 12/03/21 12/03/21 Unknown History Reported Home Medications] Active Medications: Generic Name Dose Route Start Last Admin Trade Name Freq PRN Reason Stop Dose Admin Acetaminophen 650 mg 11/29/21 08:30 Acetaminophen 325 Mg Tab PO Q4H PRN Pain, Mild (1-3) Acetaminophen 650 mg 12/02/21 18:09 Acetaminophen 325 Mg Tab PO Q4H PRN Pain MILD(1-3)/Fever >100.5/BEASLEY Benzocaine/Menthol 1 spray 12/02/21 18:09 Benzocaine/Menthol 20/0.5% [place] 56 Gm TP PRN PRN Episiotomy Pain Bisacodyl 10 mg 12/02/21 18:09 Bisacodyl 10 Mg Rect Supp WI BID PRN Constipation Carboprost Tromethamine 250 mcg 11/29/21 08:30 Carboprost Tromethamine 250 Mcg/1 Ml Inj IM ONCE PRN Uterine Bleeding Diphenhydramine HCl 25 mg 12/02/21 18:09 Diphenhydramine 25 Mg Cap PO Q6H PRN Itching Hydrocortisone Acetate 25 mg 12/02/21 18:09 Hydrocortisone 25 Mg Rectal Supp WI BID PRN Hemorrhoids Lactated Ringer's 1,000 mls @ 125 mls/hr 11/29/21 06:15 12/02/21 23:35 Lactated Ringers IV 999 mls/hr DIRECT KADEN Administration Oxytocin/Sodium Chloride 30 units in 500 mls @ 40 mls/hr 11/29/21 09:00 Pitocin/Ns 30 Unit/500ml IV TITR KADEN Protocol Ibuprofen 800 mg 12/02/21 18:09 12/03/21 11:09 Ibuprofen 800 Mg Tab PO 800 mg Q6H KADEN Administration Magnesium Hydroxide 30 ml 12/02/21 18:09 Magnesium Hydroxide (Mom) Oral Liqd Udc PO HS PRN Constipation Misoprostol 800 mcg 12/02/21 18:09 Misoprostol 100 Mcg Tab WI ONCE PRN Uterine Bleeding Multi-Ingredient Ointment 1 applic 12/02/21 18:09 Lanolin/Zinc/Dimethicone (Lansinoh) 7 Gm TP PRN PRN Sore Nipples Multi-Ingredient Ointment 1 applic 12/02/21 18:09 Lanolin/Zinc/Dimethicone (Lansinoh) 7 Gm TP PRN PRN dryness/cracking Multivitamins/Iron/Calcium 1 each 12/03/21 10:00 12/03/21 11:09 [id number] Fumarate-Folic Acid Vit Tab PO 1 each QDAY KADEN Administration Ondansetron HCl 4 mg 12/02/21 18:09 Ondansetron 4 Mg/2 Ml Inj IV Q8H PRN Nausea And Vomiting Oxycodone/Acetaminophen 2 tab 12/02/21 18:09 Oxycodone /Acetaminophen 5-325mg Tab PO Q4H PRN Pain, Moderate (4-6) Promethazine HCl 25 mg 12/02/21 18:09 Promethazine 25 Mg Rect Supp WI Q6H PRN Nausea And Vomiting Promethazine HCl 25 mg 12/02/21 18:09 Promethazine 25 Mg Tab PO Q6H PRN Nausea And Vomiting Sodium Chloride 10 ml 12/02/21 18:09 Sodium Chloride 0.9% 10 Ml Flush Syringe IV 12/12/21 23:59 PRN NR Valacyclovir HCl 1,000 mg 12/03/21 10:00 12/03/21 11:09 Valacyclovir 500 Mg Tab PO 1,000 mg QDAY KADEN Administration [place]/Glycerin 1 each 12/02/21 18:09 Witch [place]/ Glycerin Pad TP PRN PRN Hemorrhoid/cleansing/soothing
[2021-12-04] MEDS: IBUPROFEN 800 MG TAB PO SCH (06:15)
[2021-12-04] MEDS: PRENATAL VIT27-FE FUMARATE-FOLIC ACID VIT TAB PO SCH ×2 (08:58→10:00)
[2021-12-04] MEDS: valACYclovir 500 MG TAB PO SCH ×2 (08:58→10:00)
--- NOTE | 2021-12-04 09:23 | Progress Note ---
Assessment and Plan A: PPD # 2 - stable P: Discharge home today Discharge instructions given Subjective - Subjective Date of service: 12/04/21 Principal diagnosis: PPD#2 , Obesity Patient reports: appetite normal [place]: in NICU Objective - Vital Signs Latest vital signs: Vital Signs Temp Pulse Resp BP Pulse Ox Pulse Ox 12/04/21 01:32 98.3 F 86 20 125/79 96 12/03/21 23:23 98 12/03/21 15:56 98.1 F 87 20 127/76 95 12/03/21 12:59 97.6 F 90 20 107/63 96 Intake and Output 12/03/21 12/04/21 12/04/21 22:59 06:59 14:59 Intake Total 1340 360 240 Balance 1340 360 240 Intake: IV 1100 Lactated Ringers 1,000 ml 1000 @ 125 mls/hr IV DIRECT KADEN Rx#:[id number] ceFAZolin 2 GM In NaCl 0. 100 9% 100 ml @ 200 mls/hr IV Q8H KADEN Rx#:[id number] Oral 240 120 Intake, Free Water 360 120 Other: Total, Intake Amount 240 120 # Voids Indwelling Catheter 1 Void 1 3 # Bowel Movements 0 - Exam Breasts: Present: deferred Cardiovascular: Present: Regular rate Lungs: Present: Clear to auscultation Abdomen: Present: soft Vulva: both: normal Uterus: Present: fundal height below umbilicus Deep Tendon Reflex Grade: Normal +2
--- NOTE | 2021-12-04 09:28 | Discharge Summary ---
Providers - Providers Date of Admission: 11/29/21 08:07 Date of discharge: 12/04/21 Attending physician: QUINTEN RAMACHANDRAN Primary care physician: QUINTEN RAMACHANDRAN Hospitalization Reason for admission: induction of labor Delivery: Episiotomy: none Laceration: 1st degree Discharge diagnosis: IUP at term delivered [place] baby: female Condition at discharge: Good Disposition: 01 HOME / SELF CARE / HOMELESS Plan - Discharge Medications Prescriptions: Ibuprofen [Motrin 800 MG tab] 800 mg PO Q6H #30 tablet - Provider Discharge Summary Activity: routine, no sex for 6 weeks, no strenuous exercise Diet: routine Instructions: routine Additional instructions: [] Smoking cessation referral if applicable(refer to patient education folder for contact #) [] Refer to [facility]'s [facility] Booklet Call your doctor immediately for: * Fever > 100.5 * Heavy vaginal bleeding ( >1 pad per hour) * Severe persistent headache * Shortness of breath * Reddened, hot, painful area to leg or breast * Drainage or odor from incision. * Keep incision clean and dry at all times and follow doctor's instructions regarding bathing/showering - Follow up plan Follow up: QUINTEN RAMACHANDRAN MD [Primary Care Provider] - 6 Weeks
[2021-12-04 09:37] VITALS: BP 96/49
== END 2021-12-04 12:40 | disposition home or self-care (01) | DRG 774 ==
LOC: TRG 01:25 → APU 02:01 → TRG 08:07 → LD 15:41 → OB 12-02 17:10
PROVIDERS: ADMIT Obstetrics & Gynecology; ATTEND Obstetrics & Gynecology
PROC: 10E0XZZ Delivery of Products of Conception, External Approach (ICD-10-PCS; principal; 2021-12-02)
PROC: 3E0R3BZ Introduction of Anesthetic Agent into Spinal Canal, Percutaneous Approach (ICD-10-PCS; 2021-12-02)
PROC: 00HU33Z Insertion of Infusion Device into Spinal Canal, Percutaneous Approach (ICD-10-PCS; 2021-12-02)
PROC: 10907ZC Drainage of Amniotic Fluid, Therapeutic from Products of Conception, Via Natural or Artificial Opening (ICD-10-PCS; 2021-12-02)
PROC: 3E033VJ Introduction of Other Hormone into Peripheral Vein, Percutaneous Approach (ICD-10-PCS; 2021-12-02)
PROC: 0HQ9XZZ Repair Perineum Skin, External Approach (ICD-10-PCS; 2021-12-02)
DX: O41.03X0 Oligohydramnios, third trimester, not applicable or unspecified (principal); O98.52 Other viral diseases complicating childbirth; Z37.0 Single live birth; Z3A.38 38 weeks gestation of pregnancy; U07.1 COVID-19; O76 Abnormality in fetal heart rate and rhythm complicating labor and delivery; O98.32 Other infections with a predominantly sexual mode of transmission complicating childbirth; A60.00 Herpesviral infection of urogenital system, unspecified; O98.82 Other maternal infectious and parasitic diseases complicating childbirth; B37.9 Candidiasis, unspecified; F84.5 Asperger's syndrome; O99.344 Other mental disorders complicating childbirth; O63.9 Long labor, unspecified; O72.1 Other immediate postpartum hemorrhage; O70.0 First degree perineal laceration during delivery; O66.0 Obstructed labor due to shoulder dystocia; O90.81 Anemia of the puerperium; Z88.8 Allergy status to other drugs, medicaments and biological substances; Z91.018 Allergy to other foods
CPT/HCPCS: 36415; 76770; 76815; 76816; 80053; 81001; 82140; 85014; 85018; 85025; 85027; 86592; 86593; 86706; 86780; 86850; 86900; 86901; 93005; G0378; J3490; J0290; J0595; J0690; J2210; J2590; J3010; J7120; U0003